=== PATIENT | male | born 1985 | race Caucasian/White ===

== ENCOUNTER 2016-12-13 08:40 | Emergency (ER) | payer SELFPAY ==
[~2016-12-13] VITALS: Ht 152.4 cm; Wt 60.0 kg
[2016-12-13 09:01] VITALS: BP 138/74; PULSE 87; RESP 14; TEMP 98.1; O2SAT 98
--- NOTE | 2016-12-13 09:01 | PD ---
HPI Chief Complaint: Skin Problem Time Seen by Provider: 08:55 Travel History International Travel<30 days: No Contact w/Intl Traveler<30days: No Traveled to known affect area: No History of Present Illness HPI Patient comes in complaining of possible MRSA infection on his left arm and chest. Patient states he's had MRSA in the past and this seems similar to previous infection just not as bad. Patient reports outbreak began while he was in [place]. Patient states he was on antibiotics for this last dose approximately one month ago. Denies any fevers, weight loss, chest pain, shortness of breath, abdominal pain, nausea, vomiting, or diarrhea. Denies anything making it better. States feels like it is spreading. PFSH Past Medical History Medical History: Denies Significant Hx Integumentary: Yes (MRSA) Tetanus Vaccination: > 5 Years Influenza Vaccination: No Social History Alcohol Use: Yes (OCC) Tobacco Use: No Substance Use: No Allergies-Medications (Allergen,Severity, Reaction): Coded Allergies: No Known Allergies (Unverified , 12/13/16) Reported Meds & Prescriptions Reported Meds & Active Scripts Active Bactrim DS (Sulfamethoxazole-Trimethoprim) 800-160 Mg Tab 1 Tab PO BID Review of Systems Except as stated in HPI: all other systems reviewed are Neg Physical Exam Narrative GENERAL: Well-developed, well nourished, in no acute distress, and non-ill appearing. SKIN: Warm and dry. Multiple small pimple appearing lesions noted right anterior chest wall and left upper extremity. There is no indurated or fluctuant. There is no surrounding cellulitis. HEAD: Atraumatic. Normocephalic. EYES: Pupils equal and round. EOMI. No scleral icterus. No injection or drainage. ENT: No nasal bleeding or discharge. Mucous membranes pink and moist. NECK: Trachea midline. Supple. No nuclear rigidity. CARDIOVASCULAR: Regular rate and rhythm. No murmur appreciated. RESPIRATORY: No accessory muscle use. No respiratory distress. Clear to auscultation. Breath sounds equal bilaterally. MUSCULOSKELETAL: No obvious deformities. No clubbing. No cyanosis. No edema. Full range of motion. NEUROLOGICAL: Awake and alert. No obvious cranial nerve deficits. Motor grossly within normal limits. Normal speech. PSYCHIATRIC: Appropriate mood and affect; insight and judgment normal. Data Data Last Documented VS Vital Signs Date Time Temp Pulse Resp B/P Pulse Ox O2 Delivery O2 Flow Rate FiO2 12/13/16 09:01 98.1 87 14 138/74 98 MDM Medical Decision Making Medical Screen Exam Complete: Yes Emergency Medical Condition: Yes Differential Diagnosis Abscess, cellulitis, folliculitis, other Narrative Course There were no blisters or bullae, target lesions, purpura or petechia, nor vesiculobullous or scarlatiniform lesions. The patient looks great and was non- ill appearing. There was no evidence to suggest scabies, cellulitis, folliculitis or abscess, Staph. Scalded Skin Syndrome, Toxic Shock, Toxic Epidermal necrolysis, Kawasakis, Measles, Rubella, cutaneous T cell lymphoma, Erythema Multiforme (minor or major). Plan of care was discussed with the patient and the patient is to follow up with their physician. The patient agreed with plan. Patient in no obvious distress upon re-evaluation. Patient was asked if they wanted to speak to my attending, which the patient did not wish to do at this time. Any questions/concerns in reference to patient diagnosis/condition discussed and clarified prior to patient's discharge. Reinforced sheer importance of close follow up with patient's primary physician or primary care clinic. Instructed patient to return to ED immediately, if symptoms return/ worsen. Pt showed understanding of above instructions. Further instructions and recommendations were detailed in discharge paperwork. Pt ambulated without difficulty out of ED at discharge. Diagnosis Primary Impression: Rash and nonspecific skin eruption Patient Instructions: Acute Rash (ED), General Instructions Additional Instructions: Follow-up with your primary care physician and/or health and wellness instructor next week for evaluation. Take all medication as prescribed. Return to the emergency department if symptoms get worse. Med/Other Pt SpecificInfo: Prescription(s) given Scripts Sulfamethoxazole-Trimethoprim (Bactrim DS)800-160 Mg Tab1 Tab PO BID #20 TAB Ref 0 Prov:Lacho Escobedo MD 12/13/16 Disposition: 01 DISCHARGE HOME Condition: Stable Marc Alvarado Dec 13, 2016 09:01
[2016-12-13] MEDS ORDERED: BACT800T5 PO (09:02)
== END 2016-12-13 09:23 | disposition home or self-care (01) ==
LOC: NEPB 08:40
DX: R21 Rash and other nonspecific skin eruption (principal)
CPT/HCPCS: 99283